=== PATIENT | male | born 1990 | race Caucasian/White ===

== ENCOUNTER 2017-04-18 11:58 | Emergency (ER) | payer OTHER ==
[~2017-04-18] VITALS: Ht 182.9 cm; Wt 65.8 kg
[2017-04-18 11:59] VITALS: BP 127/70
[2017-04-18] MEDS ORDERED: ROBA500T PO (12:22)
[2017-04-18] MEDS ORDERED: NAPR500T2 PO (12:22)
[2017-04-18] MEDS ORDERED: NORCOTAB PO (12:22)
[2017-04-18] MEDS ORDERED: KETOROLAC 60 MG/2 ML VIAL (J1885) IM ONE (12:30)
== END 2017-04-18 12:32 | disposition home or self-care (01) ==
LOC: M ED 12:18
DX: S70.01XA Contusion of right hip, initial encounter (principal); S90.31XA Contusion of right foot, initial encounter; S40.021A Contusion of right upper arm, initial encounter; V32.0XXA Driver of three-wheeled motor vehicle injured in collision with two- or three-wheeled motor vehicle in nontraffic accident, initial encounter; Y92.830 Public park as the place of occurrence of the external cause; F17.210 Nicotine dependence, cigarettes, uncomplicated
CPT/HCPCS: 96372; 99282; J1885

== ENCOUNTER 2018-01-24 15:58 | Emergency (ER) | payer OTHER, SELFPAY ==
[2018-01-24] MEDS: NS 1,000 ML IV ×2 (16:30)
[2018-01-24] MEDS: ASPIRIN 81 MG CHEW TABLET PO ×2 (16:30)
[2018-01-24] MEDS: MORPHINE 2 MG/ML 1ML SYRINGE (J2270) IV ×6 (16:33→17:08)
[2018-01-24] MEDS: ONDANSETRON 4MG/2ML VIAL (J2405) IV ×2 (16:33)
[2018-01-24] MEDS ORDERED: MORPHINE 4 MG/ML 1ML VIAL (J2270) As Ordered ×2 (16:37)
[2018-01-24 16:42] LABS: BASO # 0.1 10^3/uL (0.0-0.2); BASO % 0.9 % (0.0-1.0); EOS # 0.2 10^3/uL (0.0-0.50); EOS % 3.9 % (0.0-3.0); HEMATOCRIT 40.9 % (42.0-52.0); HEMOGLOBIN 14.2 g/dl (14.0-18.0); IMMATURE GRANULOCYTE % 0.2 % (0-3.0); LYMPH # 2.1 10^3/uL (1.5-6.5); LYMPH % 37.2 % (24.0-44.0); MEAN CORPUSCULAR HEMOGLOBIN 29.8 pg (27.0-33.0); MEAN CORPUSCULAR HGB CONC 34.7 g/dl (32.0-36.5); MEAN CORPUSCULAR VOLUME 85.9 fl (80.0-96.0); MONO # 0.7 10^3/uL (0.0-0.8); MONO % 11.5 % (0.0-5.0); NEUTROPHILS # 2.6 10^3/uL (1.8-7.7); NEUTROPHILS % 46.3 % (36.0-66.0); PLATELET COUNT, AUTOMATED 184 10^3/uL (150-450); RED BLOOD COUNT 4.76 10^6/uL (4.30-6.10); RED CELL DISTRIBUTION WIDTH 12.9 % (11.5-14.5); WHITE BLOOD COUNT 5.7 10^3/uL (4.0-10.0)
[2018-01-24] MEDS: MORPHINE 4 MG/ML 1ML VIAL (J2270) IV ×2 (16:45)
[2018-01-24 16:56] LABS: INR 1.02; PROTHROMBIN TIME 13.5 SECONDS (12.4-14.5)
[2018-01-24 16:57] LABS: PARTIAL THROMBOPLASTIN TIME 32.3 SECONDS (26.8-37.9)
[2018-01-24 16:59] LABS: D-DIMER QUANT 277.4 ng/ml (<500)
[2018-01-24 17:04] LABS: ALBUMIN 3.9 GM/DL (3.2-5.2); ALBUMIN/GLOBULIN RATIO 1.22 (1.00-1.93); ALKALINE PHOSPHATASE 111 U/L (45-117); ALT/SGPT 23 U/L (12-78); ANION GAP 8 MEQ/L (8-16); AST/SGOT 23 U/L (7-37); BILIRUBIN,DIRECT < 0.1 MG/DL (0.0-0.2); BILIRUBIN,TOTAL 0.3 MG/DL (0.2-1.0); BLOOD UREA NITROGEN 14 MG/DL (7-18); CALCIUM LEVEL 8.3 MG/DL (8.5-10.1); CARBON DIOXIDE LEVEL 27 MEQ/L (21-32); CHLORIDE LEVEL 106 MEQ/L (98-107); CPK CREATINE PHOSPHOKINASE 178 U/L (39-308); CREATININE FOR GFR 0.86 MG/DL (0.70-1.30); FREE T4 0.78 NG/DL (0.76-1.46); GLOMERULAR FILTRATION RATE > 60.0 (>60); GLUCOSE, FASTING 110 MG/DL (70-100); LIPASE 79 U/L (73-393); POTASSIUM SERUM 3.9 MEQ/L (3.5-5.1); SODIUM LEVEL 141 MEQ/L (136-145); TOTAL PROTEIN 7.1 GM/DL (6.4-8.2); TROPONIN I < 0.02 NG/ML (< 0.10)
[2018-01-24 17:10] LABS: CK-MB VALUE MASS 1.4 NG/ML (0.0-3.6); MB/CK RELATIVE INDEX 0.78 (< OR =4); THYROID STIMULATING HORMONE 0.851 uIU/ML (0.358-3.740)
[2018-01-24] MEDS ORDERED: ISOVUE-370 76% 100ML VIAL (Q9967) As Ordered ×2 (17:30)
[2018-01-24 19:32] LABS: CPK CREATINE PHOSPHOKINASE 149 U/L (39-308); TROPONIN I < 0.02 NG/ML (< 0.10)
[2018-01-24 19:33] LABS: MB/CK RELATIVE INDEX 0.67 (< OR =4)
== END 2018-01-24 20:16 | disposition home or self-care (01) ==
LOC: M ED 15:58
DX: R07.9 Chest pain, unspecified (principal); R06.00 Dyspnea, unspecified; R00.1 Bradycardia, unspecified; F17.210 Nicotine dependence, cigarettes, uncomplicated; Z82.49 Family history of ischemic heart disease and other diseases of the circulatory system
CPT/HCPCS: J2270

== ENCOUNTER → 2018-02-03 | Outpatient (REF) | payer OTHER, SELFPAY ==
[2018-02-03 14:53] LABS: CHOLESTEROL LEVEL 143 MG/DL (<200); HDL CHOLESTEROL 65 MG/DL (>40); LDL CHOLESTEROL 57.2 MG/DL (<100); NON-HDL-C 78 MG/DL; TRIGLYCERIDES LEVEL 104 MG/DL (<150)
== END ==
LOC: M SFHCPLAZ 12:08
DX: Z13.220 Encounter for screening for lipoid disorders (principal)
CPT/HCPCS: 36415; 80061

== ENCOUNTER 2019-07-03 11:00 | Emergency (ER) | payer OTHER, SELFPAY ==
[~2019-07-03] VITALS: Ht 182.9 cm; Wt 70.5 kg
[~2019-07-03 11:00] MED LIST: HYDR-3715 PO; NAPR-885 PO; ROBA500T PO
[2019-07-03] MEDS ORDERED: NAPR-837 PO (13:30)
[2019-07-03 13:38] VITALS: BP 125/72
--- NOTE | 2019-07-03 13:51 | REP ---
REASON: Pain after trauma. FINDINGS: The hip joint space is symmetric and relatively well maintained. T here is no acute or destructive osseous lesion. There is a cam deformity noted. Electronically Signed by Charli Joyce DO 07/03/2019 02:21 P
== END 2019-07-03 13:44 | disposition home or self-care (01) ==
LOC: M ED 11:00
DX: S70.01XA Contusion of right hip, initial encounter (principal); M70.71 Other bursitis of hip, right hip; X58.XXXA Exposure to other specified factors, initial encounter; Y92.9 Unspecified place or not applicable; Y93.64 Activity, baseball; Y99.9 Unspecified external cause status; Z72.0 Tobacco use

== ENCOUNTER → 2021-04-29 | Outpatient (CLI) | payer MEDICAID ==
[~2021-04-29] MED LIST changes: +NAPR-837 PO
== END ==
LOC: M OUTALCOH 07:55
PROVIDERS: ATTEND Psychiatry & Neurology Psychiatry
DX: F10.20 Alcohol dependence, uncomplicated (principal); F12.20 Cannabis dependence, uncomplicated

== ENCOUNTER → 2021-05-28 | Outpatient (RCR) | payer MEDICAID | LOC: M OUTALCOH 05-09 10:43 | PROVIDERS: ATTEND Psychiatry & Neurology Psychiatry | DX: F10.20 Alcohol dependence, uncomplicated (principal); F12.20 Cannabis dependence, uncomplicated; Z72.0 Tobacco use ==

== ENCOUNTER 2021-06-26 09:00 | Outpatient (RCR) | payer MEDICAID | END 2021-06-28 | LOC: M OUTALCOH 09:00 | PROVIDERS: ATTEND Psychiatry & Neurology Psychiatry | DX: F10.20 Alcohol dependence, uncomplicated (principal); F12.20 Cannabis dependence, uncomplicated; Z72.0 Tobacco use ==

== ENCOUNTER → 2021-07-29 | Outpatient (RCR) | payer MEDICAID | LOC: M OUTALCOH 07-03 11:20 | PROVIDERS: ATTEND Psychiatry & Neurology Psychiatry | DX: F10.20 Alcohol dependence, uncomplicated (principal); F12.20 Cannabis dependence, uncomplicated; Z72.0 Tobacco use ==

== ENCOUNTER 2021-08-27 14:08 | Outpatient (RCR) | payer MEDICAID | END 2021-08-28 | LOC: M OUTALCOH 14:08 | PROVIDERS: ATTEND Psychiatry & Neurology Psychiatry | DX: F10.20 Alcohol dependence, uncomplicated (principal); F12.20 Cannabis dependence, uncomplicated; Z72.0 Tobacco use ==

== ENCOUNTER 2021-09-24 13:11 | Outpatient (RCR) | payer MEDICAID | END 2021-09-28 | LOC: M OUTALCOH 13:11 | PROVIDERS: ATTEND Psychiatry & Neurology Psychiatry | DX: F10.20 Alcohol dependence, uncomplicated (principal); F12.20 Cannabis dependence, uncomplicated; Z72.0 Tobacco use ==

== ENCOUNTER 2021-10-22 16:00 | Outpatient (RCR) | payer MEDICAID | END 2021-10-28 | LOC: M OUTALCOH 16:00 | PROVIDERS: ATTEND Psychiatry & Neurology Psychiatry | DX: F10.20 Alcohol dependence, uncomplicated (principal); F12.20 Cannabis dependence, uncomplicated; Z72.0 Tobacco use ==

== ENCOUNTER 2021-11-19 14:43 | Outpatient (RCR) | payer MEDICAID | END 2021-11-28 | LOC: M OUTALCOH 14:43 | PROVIDERS: ATTEND Psychiatry & Neurology Psychiatry | DX: F10.20 Alcohol dependence, uncomplicated (principal); F12.20 Cannabis dependence, uncomplicated; Z72.0 Tobacco use ==

== ENCOUNTER 2021-12-24 14:21 | Outpatient (RCR) | payer MEDICAID | END 2021-12-29 | LOC: M OUTALCOH 14:21 | PROVIDERS: ATTEND Psychiatry & Neurology Psychiatry | DX: F10.20 Alcohol dependence, uncomplicated (principal); F12.20 Cannabis dependence, uncomplicated; Z72.0 Tobacco use ==

== ENCOUNTER 2022-01-14 14:21 | Outpatient (RCR) | payer MEDICAID | END 2022-01-26 | LOC: M OUTALCOH 14:21 | PROVIDERS: ATTEND Psychiatry & Neurology Psychiatry | DX: F10.20 Alcohol dependence, uncomplicated (principal); F12.20 Cannabis dependence, uncomplicated; Z72.0 Tobacco use ==

== ENCOUNTER 2022-02-18 15:00 | Outpatient (RCR) | payer MEDICAID | END 2022-02-26 | LOC: M OUTALCOH 15:00 | PROVIDERS: ATTEND Psychiatry & Neurology Psychiatry | DX: F10.20 Alcohol dependence, uncomplicated (principal); F12.20 Cannabis dependence, uncomplicated; Z72.0 Tobacco use ==

== ENCOUNTER 2022-03-25 14:55 | Outpatient (RCR) | payer MEDICAID | END 2022-03-28 | LOC: M OUTALCOH 14:55 | PROVIDERS: ATTEND Psychiatry & Neurology Psychiatry | DX: F10.20 Alcohol dependence, uncomplicated (principal); F12.20 Cannabis dependence, uncomplicated; Z72.0 Tobacco use ==

== ENCOUNTER 2022-04-01 14:02 | Outpatient (RCR) | payer MEDICAID | END 2022-04-28 | LOC: M OUTALCOH 14:02 | PROVIDERS: ATTEND Psychiatry & Neurology Psychiatry | DX: F10.20 Alcohol dependence, uncomplicated (principal); F12.20 Cannabis dependence, uncomplicated; Z72.0 Tobacco use ==

== ENCOUNTER → 2023-03-18 | Outpatient (CLI) | payer MEDICAID | LOC: M OUTALCOH 07:37 | PROVIDERS: ATTEND Psychiatry & Neurology Psychiatry | DX: Z13.39 Encounter for screening examination for other mental health and behavioral disorders (principal) ==

== ENCOUNTER 2024-06-10 12:47 | Emergency (ER) | payer BC, MEDICAID ==
[~2024-06-10] VITALS: Ht 182.9 cm; Wt 67.2 kg
[2024-06-10 12:47] VITALS: BP 134/79; TEMP 97.8; O2SAT 99
[2024-06-10] MEDS: IBUPROFEN 600MG TAB PO ONE (15:39)
== END 2024-06-10 15:41 | disposition home or self-care (01) ==
LOC: M ED 12:47
DX: S46.011A Strain of muscle(s) and tendon(s) of the rotator cuff of right shoulder, initial encounter (principal); S53.401A Unspecified sprain of right elbow, initial encounter; Y92.019 Unspecified place in single-family (private) house as the place of occurrence of the external cause; Y93.9 Activity, unspecified; Y99.9 Unspecified external cause status; F17.290 Nicotine dependence, other tobacco product, uncomplicated; F12.10 Cannabis abuse, uncomplicated

== ENCOUNTER 2025-11-22 17:07 | Emergency (ER) | payer BC, SELFPAY ==
[~2025-11-22] VITALS: Ht 182.9 cm; Wt 70.5 kg
[2025-11-22] MEDS: ACETAMINOPHEN 500 MG TAB PO ONE (18:27)
[2025-11-22] MEDS ORDERED: OSEL75CA PO (18:49)
[2025-11-22 18:57] VITALS: BP 124/98; TEMP 99.7; O2SAT 99
== END 2025-11-22 18:58 | disposition home or self-care (01) ==
LOC: M ED 17:07
DX: J09.X2 Influenza due to identified novel influenza A virus with other respiratory manifestations (principal); F12.10 Cannabis abuse, uncomplicated; Z79.899 Other long term (current) drug therapy